=== PATIENT | male | born 1985 | race Caucasian/White ===

== ENCOUNTER 2017-06-20 07:33 | Day surgery (SDC) | payer MEDICARE, OTHER ==
[~2017-06-20] VITALS: Ht 182.9 cm; Wt 86.5 kg
[~2017-06-20 07:33] MED LIST: AMLO5TAB2 PO; ATOR10TA15 PO; CYCL1TAB29 PO; HYDR-3583 PO; LANTINJ SQ; NEUR100C PO; SEVEL800 PO
[2017-06-20 08:17] VITALS: BP 177/106; PULSE 86; RESP 17; TEMP 97.9; O2SAT 100
[2017-06-20 08:42] LABS: AUTOMATED NEUTROPHIL # 4.5 TH/MM3 (1.8-7.7); BASOPHIL # 0.1 TH/MM3 (0-0.2); BASOPHIL % 2.1 % (0.0-2.0); EOSINOPHIL # 0.3 TH/MM3 (0-0.4); EOSINOPHIL % 4.1 % (0.0-4.0); HEMOGLOBIN 10.7 GM/DL (13.0-17.0); LYMPH % 20.8 % (9.0-44.0); LYMPHOCYTE # 1.5 TH/MM3 (1.0-4.8); MEAN CELL VOLUME 93.8 FL (80.0-100.0); MEAN CORPUSCULAR HEMOGLOBIN 31.3 PG (27.0-34.0); MEAN CORPUSCULAR HGB CONC 33.4 % (32.0-36.0); MEAN PLATELET VOLUME 8.8 FL (7.0-11.0); MONO % 8.4 % (0.0-8.0); MONOCYTE # 0.6 TH/MM3 (0-0.9); NEUT % 64.6 % (16.0-70.0); PLATELET COUNT 134 TH/MM3 (150-450); RED BLOOD COUNT 3.41 MIL/MM3 (4.50-5.90); RED CELL DISTRIBUTION WIDTH 13.7 % (11.6-17.2)
[2017-06-20 08:59] LABS: BICARBONATE 29.5 MEQ/L (21.0-32.0); CALCIUM 8.3 MG/DL (8.5-10.1)
[2017-06-20 09:15] LABS: CREATININE 14.67 MG/DL (0.60-1.30)
[2017-06-20] MEDS ORDERED: HEPARIN SODIUM - IV 10,000 UNITS/10 ML VIAL ONE (12:18)
[2017-06-20] MEDS ORDERED: MIDAZOLAM HCL 5 MG/ML VIAL (1 ML) ONE (12:18)
[2017-06-20] MEDS ORDERED: IOHEXOL 300 MG/ML 50 ML BTL (for RAD DIAG) OTHER ONE (12:47)
--- NOTE | 2017-06-20 23:59 | MP ---
cc: JOHANA RICKETTS Corrected Copy: 08/14/17 DATE OF SURGERY 06/20/17 ATTENDING DO Gerard PROCEDURE 1. Fistulogram right upper extremity. 2. Balloon angioplasty of central venous stenosis with a 10 mm x 4 cm and a 14 mm x 4 cm [place] Conquest and then an [place] Balloon. SURGEON DO Gerard IV FLUIDS 200 cc. ESTIMATED BLOOD LOSS Minimal. URINE OUTPUT Not calculated. COMPLICATIONS None. DISPOSITION To PACU. PROCEDURE The patient's right upper extremity was prepped, draped in the sterile fashion after being under moderate sedation. I got access to the right upper extremity using a 21 gauge needle exchanged for a 4-[place] micropuncture catheter using Seldinger technique. I did use 2 cc of 1% lidocaine to anesthetize the arm before placing my needle percutaneously. I advanced a stiff angled Glidewire over then exchanged for a 7-[place] sheath. It should be noted I did perform a fistulogram in the right upper extremity that showed that the outflow cephalic vein was patent. There was an area of narrowing but the area on both sides are so large and with a previous failed attempts at angioplasty I did not perform angioplasty on this area as he has no issues with the functioning of the fistula but just with arm swelling. His axillary and subclavian vein was widely patent on the right. 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 This was treated with a 10 and subsequently with a 14 mm x 4 cm balloon after giving 4000 units of heparin before performing balloon angioplasty. There was some resolution in the diameter of the vessel after performing balloon angioplasty. At the end of the procedure I used a 4-0 Prolene pursestring stitch, applied pressure to the right arm. FINDINGS/CONCLUSION The patient had a moderate to high-grade central venous stenosis, successfully treated with a balloon angioplasty. ADDENDUM PREOPERATIVE DIAGNOSIS End-stage renal disease and right upper extremity swelling. POSTOPERATIVE DIAGNOSIS End-stage renal disease and right upper extremity swelling. Johana Ricketts DO RM/EO /1:15 PM /11:44 PM [facility]
--- NOTE | 2017-06-20 23:59 | MP ---
cc: JOHANA RICKETTS Corrected Copy: 08/14/17 DATE OF SURGERY 06/20/17 ATTENDING DO Gerard PROCEDURE 1. Fistulogram right upper extremity. 2. Balloon angioplasty of central venous stenosis with a 10 mm x 4 cm and a 14 mm x 4 cm [place] Conquest and then an [place] Balloon. SURGEON DO Gerard IV FLUIDS 200 cc. ESTIMATED BLOOD LOSS Minimal. URINE OUTPUT Not calculated. COMPLICATIONS None. DISPOSITION To PACU. PROCEDURE The patient's right upper extremity was prepped, draped in the sterile fashion after being under moderate sedation. I got access to the right upper extremity using a 21 gauge needle exchanged for a 4-[place] micropuncture catheter using Seldinger technique. I did use 2 cc of 1% lidocaine to anesthetize the arm before placing my needle percutaneously. I advanced a stiff angled Glidewire over then exchanged for a 7-[place] sheath. It should be noted I did perform a fistulogram in the right upper extremity that showed that the outflow cephalic vein was patent. There was an area of narrowing but the area on both sides are so large and with a previous failed attempts at angioplasty I did not perform angioplasty on this area as he has no issues with the functioning of the fistula but just with arm swelling. His axillary and subclavian vein was widely patent on the right. 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 This was treated with a 10 and subsequently with a 14 mm x 4 cm balloon after giving 4000 units of heparin before performing balloon angioplasty. There was some resolution in the diameter of the vessel after performing balloon angioplasty. At the end of the procedure I used a 4-0 Prolene pursestring stitch, applied pressure to the right arm. FINDINGS/CONCLUSION The patient had a moderate to high-grade central venous stenosis, successfully treated with a balloon angioplasty. ADDENDUM PREOPERATIVE DIAGNOSIS End-stage renal disease and right upper extremity swelling. POSTOPERATIVE DIAGNOSIS End-stage renal disease and right upper extremity swelling. Johana Ricketts DO RM/EO /1:15 PM /11:44 PM [facility]
--- NOTE | 2017-06-20 23:59 | MP ---
cc: JOHANA RICKETTS Corrected Copy: 08/14/17 DATE OF SURGERY 06/20/17 ATTENDING DO Gerard PROCEDURE 1. Fistulogram right upper extremity. 2. Balloon angioplasty of central venous stenosis with a 10 mm x 4 cm and a 14 mm x 4 cm [place] Conquest and then an [place] Balloon. SURGEON DO Gerard IV FLUIDS 200 cc. ESTIMATED BLOOD LOSS Minimal. URINE OUTPUT Not calculated. COMPLICATIONS None. DISPOSITION To PACU. PROCEDURE The patient's right upper extremity was prepped, draped in the sterile fashion after being under moderate sedation. I got access to the right upper extremity using a 21 gauge needle exchanged for a 4-[place] micropuncture catheter using Seldinger technique. I did use 2 cc of 1% lidocaine to anesthetize the arm before placing my needle percutaneously. I advanced a stiff angled Glidewire over then exchanged for a 7-[place] sheath. It should be noted I did perform a fistulogram in the right upper extremity that showed that the outflow cephalic vein was patent. There was an area of narrowing but the area on both sides are so large and with a previous failed attempts at angioplasty I did not perform angioplasty on this area as he has no issues with the functioning of the fistula but just with arm swelling. His axillary and subclavian vein was widely patent on the right. 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 This was treated with a 10 and subsequently with a 14 mm x 4 cm balloon after giving 4000 units of heparin before performing balloon angioplasty. There was some resolution in the diameter of the vessel after performing balloon angioplasty. At the end of the procedure I used a 4-0 Prolene pursestring stitch, applied pressure to the right arm. FINDINGS/CONCLUSION The patient had a moderate to high-grade central venous stenosis, successfully treated with a balloon angioplasty. ADDENDUM PREOPERATIVE DIAGNOSIS End-stage renal disease and right upper extremity swelling. POSTOPERATIVE DIAGNOSIS End-stage renal disease and right upper extremity swelling. Johana Ricketts DO RM/EO /1:15 PM /11:44 PM [facility]
== END 2017-06-20 15:51 | disposition home or self-care (01) ==
LOC: HCVO 07:33 → HDIC 07:34 → HCVO 15:51
PROVIDERS: ATTEND Surgery
DX: N18.6 End stage renal disease (principal); M79.89 Other specified soft tissue disorders
CPT/HCPCS: 36901; 36907; 80048; 85025; C1725; C1769; J1644; J2250; J3010; Q9967; 36908; 37236; 37248